=== PATIENT | male | born 1940 | race Caucasian/White ===

== ENCOUNTER 2018-03-26 11:41 | Inpatient (IN) | payer OTHER ==
[~2018-03-26] VITALS: Ht 167.6 cm; Wt 67.6 kg
[2018-03-26 11:45] VITALS: BP 101/31
--- NOTE | 2018-03-26 11:52 | NUR ---
77 YO MALE BIB EMS FROM HOME FOR SUDDEN ONSET OF GENERAL WEAKNESS & DIZINESS. AWAKE AND ALERT ON ARRIVAL.MED HX : DEAF USE SIGN LAGUAGE, HEART PROBLEM : STENT 2 WKS AGO AT [facility]. DENIES N/V/D; SKIN IS PINK/WARM/DRY; AAOX4 WITH EVEN AND STEADY GAIT; LUNGS CLEAR BL;PT DENIES ANY FEVER, CP, SOB, OR COUGH AT THIS TIME; PATIENT STATES PAIN OF 0/10 AT THIS TIME. PATIENT POSITIONED FOR COMFORT; HOB ELEVATED; BEDRAILS UP X2; BED DOWN. ER MD MADE AWARE OF PT STATUS.
[2018-03-26] MEDS ORDERED: NACL 0.9% 1,000 ML IV SCH ×2 (11:53→14:41)
[2018-03-26 12:17] LABS: BASOPHILS % (AUTO) 0.3 % (0.0-2.0); EOSINOPHILS % (AUTO) 0.2 % (0.0-4.0); LYMPHOCYTES # (AUTO) 0.7 K/uL (2.0-11.5); LYMPHOCYTES % (AUTO) 7.6 % (20.5-51.1); MEAN CORPUSCULAR HEMOGLOBIN 31 pg (27-31); MEAN CORPUSCULAR HGB CONC 34 g/dL (33-37); MEAN CORPUSCULAR VOLUME 91.6 fL (80-94); MONOCYTES # (AUTO) 0.7 K/uL (0.8-1.0); MONOCYTES % (AUTO) 7.1 % (1.7-9.3); NEUTROPHILS # (AUTO) 8.4 K/uL (1.8-7.7); NEUTROPHILS % (AUTO) 84.8 % (42.2-75.2); PLATELET COUNT (AUTO) 120 K/uL (140-450); RED CELL DISTRIBUTION WIDTH 14.9 % (11.6-13.7); WHITE BLOOD COUNT (AUTO) 9.9 K/uL (4.8-10.8)
[2018-03-26 12:32] LABS: HEMATOCRIT 16.5 % (36-52); HEMOGLOBIN 5.5 g/dL (12.0-18.0)
--- NOTE | 2018-03-26 12:41 | NUR ---
Patient being reevaluated by dr vargas at bedside.
[2018-03-26 12:46] LABS: ALBUMIN 2.1 g/dL (3.4-5.0); ANION GAP 10.8 (8-16); ASPARTATE AMINOTRANSFERASE 15 U/L (15-37); CARBON DIOXIDE 21.5 mmol/L (21-32); CHLORIDE 112 mmol/L (98-107); CREATININE 1.6 mg/dL (0.7-1.3); GLUCOSE 103 mg/dL (74-106); POTASSIUM 4.3 mmol/L (3.5-5.1); SODIUM SERUM 140 mmol/L (136-145); TOTAL BILIRUBIN 0.6 mg/dL (0.0-1.0); UREA NITROGEN, BLOOD 52 mg/dL (7-18)
--- NOTE | 2018-03-26 12:48 | NUR ---
family at bedside.
[2018-03-26 13:07] LABS: PROTHROMBIN TIME 14.4 secs (10.8-13.4)
--- NOTE | 2018-03-26 13:11 | NUR ---
PT CAN'T PROVIE URINE AT THIS TIME. NOTIFIED DR STODDARD. MADE AWARE.
--- NOTE | 2018-03-26 13:25 | NUR ---
SISTER IN LAW AT BEDSIDE.
--- NOTE | 2018-03-26 14:00 | NUR ---
BLOOD TRANSFUSION GIVEN STARTED AT 1400 PM. SEE DOCUMENT .
[2018-03-26] MEDS ORDERED: AMIO200T5 PO (14:36)
[2018-03-26] MEDS ORDERED: AMLO5TAB PO (14:36)
[2018-03-26] MEDS ORDERED: RIVA20TA PO (14:36)
[2018-03-26] MEDS ORDERED: ASPI-1129 PO (14:36)
[2018-03-26] MEDS ORDERED: LIP80 PO (14:36)
[2018-03-26] MEDS ORDERED: CARV3.12 PO (14:36)
[2018-03-26] MEDS ORDERED: LISI10TA11 PO (14:36)
[2018-03-26] MEDS ORDERED: TICA90TA PO (14:36)
--- NOTE | 2018-03-26 14:37 | NUR ---
Anibal recio in [facility] - 03/26/18 at 1712 by [place] ON-SERVICE EMPLOYEE ARRIVED AND WAS DIRECTED BY ARUNA ALVARADOTRADE SPECIALIST,
[2018-03-26] MEDS ORDERED: ACETAMINOPHEN 325 MG TAB PO PRN (14:45)
[2018-03-26] MEDS ORDERED: DOCUSATE SODIUM 100 MG GELCAP PO PRN (14:45)
[2018-03-26] MEDS ORDERED: LORazepam 2 MG/ML VIAL IM/IVP PRN (14:45)
[2018-03-26] MEDS ORDERED: HYDROcodone/APAP 5/325 MG 1 TAB TAB PO PRN (14:45)
[2018-03-26] MEDS ORDERED: ZOLPIDEM 5 MG TAB PO PRN (14:45)
[2018-03-26] MEDS ORDERED: ONDANSETRON 4 MG/2 ML VIAL IM/IVP PRN (14:45)
--- NOTE | 2018-03-26 14:45 | NUR ---
Patient appears to be resting comfortably in bed. BP109/34. Respirations even and unlabored.WILL CONTINUE TO MONITOR.NO BL TRANSFUSION REACTION AT THIS TIME. FAMILY AT BEDSIDE.
--- NOTE | 2018-03-26 15:28 | NUR ---
SPOKE TO COMMEND AT THIS TIME, AN CINNAMON GRINDER WILL BE AT THE FACILITY IN APPROXIMATELY 30 MINUTES AND BE AVAILABLE FOR 1-2 HOURS.
--- NOTE | 2018-03-26 15:49 | NUR ---
URINE SPECIMEN SENT TO LAB
--- NOTE | 2018-03-26 15:55 | NUR ---
FINISHED BL TRANSFUSION.
--- NOTE | 2018-03-26 16:37 | NUR ---
ON-DESOLDERER ARRIVED AND WAS DIRECTED BY ARUNA ALVARADOGIFT PACKER,
[2018-03-26] MEDS ORDERED: DEXT 5% / NACL 0.9% 500 ML IV SCH (16:45)
--- NOTE | 2018-03-26 16:57 | NUR ---
Patient will be admitted to care of DR GUERRERO. Admited to ICU. Will go to room 2. Belongings list completed. Report to BO HUGHES
[2018-03-26 17:07] LABS: APPEARANCE,URINE CLEAR (CLEAR); BILIRUBIN,URINE NEGATIVE (NEGATIVE); BLOOD, URINE NEGATIVE (NEGATIVE); COLOR,URINE YELLOW (YELLOW); LEUKOCYTE ESTERASE ,URINE NEGATIVE (NEGATIVE); NITRITE, URINE NEGATIVE (NEGATIVE); UGLUCOSE NEGATIVE (NEGATIVE)
[2018-03-26 17:09] LABS: CHOL/HDL RATIO 2.4 (1-4.5); MAGNESIUM 1.7 mg/dL (1.8-2.4); PHOSPHORUS 2.9 mg/dL (2.5-4.9); THYROID STIMULATING HORMONE 1.95 uIU/mL (0.34-3.74)
--- NOTE | 2018-03-26 17:10 | NUR ---
ADMITTED A 77 YO MALE FROM HOME TO ER WITH CO WEAKNESS ,DIZZINESS AND WABBLY WHEN WALKING FOR THE PAST 4 DAYS.PER PT HAD DARK STOOL .PT BECAUSE OF FEELING WEAK DID NOT EAT FOR 4 DAYS.LEFT AC 18 GAUGE SALINE LOCK.PT USES THE URINAL.PT ON 2 LITERS NASAL CANNULA SATURATING 99 PERCENT.PT IS MUTE AND ADMISSION DONE WITH SISTER IN LAW AND FAMILY CENTERED SPECIALIST YEN FELIX.NSR ON THE MONITOR.
[2018-03-26 17:11] VITALS: BP 129/70
[2018-03-26 18:00] VITALS: BP 124/82
[2018-03-26] MEDS ORDERED: PANTOPRAZOLE 40 MG INJ VIAL IVP SCH ×3 (18:05→19:00)
[2018-03-26] MEDS ORDERED: PANTOPRAZOLE 80 MG in NACL 0.9% 100 ML IV SCH (18:10)
[2018-03-26 18:32] LABS: HEMATOCRIT 22.1 % (36-52); HEMOGLOBIN 7.2 g/dL (12.0-18.0)
[2018-03-26] MEDS ORDERED: PANTOPRAZOLE 40 MG INJ VIAL ONE ×2 (18:36→19:32)
[2018-03-26] MEDS ORDERED: MAG SULF 2000 MG/WATER PREMIX 50 ML IV ONE (19:15)
--- NOTE | 2018-03-26 19:30 | NUR ---
RECEIVED REPORT FROM AM NURSE. INITIAL ASSESSMENT COMPLETED. PT IS AWAKE, ALERT, ORIENTED BUT DEAF. RUNNING INSTRUCTOR, YEN FELIX AND SISTER IN LAW AT BEDSIDE. ON ROOM AIR, O2 SAT 98%, NO SIGNS OF SOB. ATTACHED TO TIMBER HEWER, PULSE OXIMETER. IV ACCESS AT LEFT AC 18G, PATENT, INTACT. NOTED TO HAVE SIDHU DISCOLORATION AT LEFT ANTERIOR OF LOWER LEG. VOIDS FREELY. BED IN LOW POSITION, SAFETY MEASURE ENSURE. CALL LIGHT WITHIN REACH. WILL CONTINUE TO MONITOR.
[2018-03-26] MEDS: PANTOPRAZOLE 80 MG in NACL 0.9% 100 ML IV SCH (19:32)
[2018-03-26 20:00] VITALS: BP 127/60
[2018-03-26] MEDS ORDERED: FUROSEMIDE 20 MG TAB PO SCH (20:00)
--- NOTE | 2018-03-26 20:00 | NUR ---
NEW IV ACCESS AT RIGHT AC 20G INSERTED BY DOROTA CRONIN RN. PATENT, INTACT. WILL CONTINUE TO MONITOR.
[2018-03-26] MEDS: ACETAMINOPHEN 325 MG TAB PO SCH (21:07)
--- NOTE | 2018-03-26 21:40 | NUR ---
2ND UNIT OF BLOOD TRANSFUSION STARTED. CHARGE NURSE BUTCH AT BEDSIDE 2ND BIOMETRIC FINGERPRINTING TECHNICIAN. WILL CONTINUE TO MONITOR. PLEASE SEE BLOOD TRANSFUSION FORM.
[2018-03-26 22:00] VITALS: BP 123/47
--- NOTE | 2018-03-26 22:25 | NUR ---
PLEASE TAKEN TO CT SCAN, ACCOMPANIED BY RN AND NURSE COMMUNITY DEVELOPMENT COORDINATOR, MACHINE ROOM ENGINEER, YEN AND SISTER IN LAW. ATTACHED TO CLINICAL RESEARCH MANAGER. NO SIGNS OF DISTRESS. WILL CONTINUE TO MONITOR.
--- NOTE | 2018-03-26 22:40 | NUR ---
PT BACK TO ICU. NO COMPLAINT OF PAIN. WILL CONTINUE TO MONITOR. PATIENT SVCS MGR AND SISTER IN LAW AT BEDSIDE.
[2018-03-27] VITALS (22 sets, daily range): BP systolic 92–153; BP diastolic 36–90
[2018-03-27] MEDS: ACETAMINOPHEN 325 MG TAB PO SCH
--- NOTE | 2018-03-27 01:10 | NUR ---
BLOOD TRANSFUSION COMPLETED. PT ON STABLE CONDITION. NO SIGNS OF DISTRESS. 0030 DR. MOLINA NOTIFIED THAT BLOOD TRANSFUSION WILL BE COMPLETED BEFORE [address] MOLINA SAID OK NOT TO GIVE THE TYLENOL AND BENADRYL THAT WERE ORDERED TO BE GIVEN DURING TRANSFUSION (WHICH IS [id number]). TYLENOL AND BENADRYL PRIOR TRANSFUSION WERE GIVEN.
[2018-03-27] MEDS: HYDRAGUARD CREAM TP SCH ×2 (01:23→13:40)
--- NOTE | 2018-03-27 04:46 | NUR ---
DR. MOLINA AWARE OF CT HEAD AND PELVIS RESULTS. NO FURTHER ORDER AT THIS TIME. WILL CONTINUE TO MONITOR.
[2018-03-27] MEDS ORDERED: PANTOPRAZOLE 40 MG INJ VIAL ONE (05:11)
[2018-03-27] MEDS: PANTOPRAZOLE 80 MG in NACL 0.9% 100 ML IV SCH (05:13)
--- NOTE | 2018-03-27 05:20 | NUR ---
MORNING CARE, PT TOLERATED WELL.
--- NOTE | 2018-03-27 05:45 | NUR ---
DR. MOLINA IN THE UNIT. EXHAUST AND MUFFLER FITTER YEN FELIX AT BEDSIDE. PT RESTING COMFORTABLY.
[2018-03-27 05:53] LABS: BASOPHILS # (AUTO) 0.1 K/uL (0.00-0.22); BASOPHILS % (AUTO) 0.7 % (0.0-2.0); EOSINOPHILS # (AUTO) 0.3 K/uL (0-0.4); EOSINOPHILS % (AUTO) 2.5 % (0.0-4.0); HEMATOCRIT 26.7 % (36-52); HEMOGLOBIN 8.9 g/dL (12.0-18.0); LYMPHOCYTES % (AUTO) 9.6 % (20.5-51.1); MEAN CORPUSCULAR HEMOGLOBIN 30 pg (27-31); MEAN CORPUSCULAR HGB CONC 33 g/dL (33-37); MEAN CORPUSCULAR VOLUME 89.2 fL (80-94); MONOCYTES # (AUTO) 0.9 K/uL (0.8-1.0); MONOCYTES % (AUTO) 8.8 % (1.7-9.3); NEUTROPHILS # (AUTO) 8.4 K/uL (1.8-7.7); NEUTROPHILS % (AUTO) 78.4 % (42.2-75.2); RED CELL DISTRIBUTION WIDTH 16.1 % (11.6-13.7); WHITE BLOOD COUNT (AUTO) 10.7 K/uL (4.8-10.8)
[2018-03-27 06:05] LABS: PLATELET COUNT (AUTO) 62 K/uL (140-450)
[2018-03-27 06:16] LABS: ANION GAP 8.4 (8-16); CARBON DIOXIDE 24.4 mmol/L (21-32); CHLORIDE 114 mmol/L (98-107); CREATININE 1.4 mg/dL (0.7-1.3); GLUCOSE 134 mg/dL (74-106); POTASSIUM 3.8 mmol/L (3.5-5.1); SODIUM SERUM 143 mmol/L (136-145); UREA NITROGEN, BLOOD 35 mg/dL (7-18)
[2018-03-27 06:22] LABS: MAGNESIUM 2.2 mg/dL (1.8-2.4); PHOSPHORUS 1.8 mg/dL (2.5-4.9)
--- NOTE | 2018-03-27 06:55 | NUR ---
DR. MOLINA AWARE OF DECREASE PHOSPHORUS AND PLATELET RESULT. NO FURTHER ORDER AT THIS TIME. WILL CONTINUE TO MONITOR.
--- NOTE | 2018-03-27 07:09 | NUR ---
REPORT GIVEN TO ZAN RAYA FOR CONTINUITY OF CARE. PT ASLEEP AT THIS TIME.
--- NOTE | 2018-03-27 07:10 | NUR ---
RECEIVED PATIENT ON BED .NPO EXCEPT MEDS.YEN FELIX AND [id number] AVAILABLE FOR WOOL SUPPLIER.NO CO PAIN NOR ANY DISCOMFORT.LEFT AND RIGHT AC IV INTACT AND PATENT.PT USES THE URINAL.NSR AND FIRST DEGREE AV BLOCK ON THE MONITOR.
[2018-03-27] MEDS ORDERED: fentaNYL 0.05 MG/ML VIAL ONE (07:42)
[2018-03-27] MEDS ORDERED: MIDAZOLAM 2 MG/2 ML VIAL ONE ×2 (07:42)
[2018-03-27] MEDS ORDERED: POTASSIUM PHOSPHATE 15 MM in NACL 0.9% 250 ML IV SCH (08:30)
[2018-03-27] MEDS ORDERED: GLUCAGON 1 MG VIAL IVP ONE (08:45)
[2018-03-27] MEDS ORDERED: MIDAZOLAM 2 MG/2 ML VIAL IVP ONE (08:45)
[2018-03-27] MEDS ORDERED: fentaNYL 0.05 MG/ML VIAL IVP ONE (08:45)
[2018-03-27] MEDS: CARVEDILOL 3.125 MG TAB PO SCH ×2 (09:00→21:00)
[2018-03-27] MEDS ORDERED: AMIODARONE 200 MG TAB PO SCH (09:00)
[2018-03-27] MEDS ORDERED: GLUCAGON 1 MG VIAL ONE (09:18)
[2018-03-27] MEDS ORDERED: PANTOPRAZOLE 40 MG TABEC PO SCH (09:21)
[2018-03-27] MEDS: FERROUS SULFATE 325 MG TABEC PO SCH ×3 (09:45→17:20)
[2018-03-27] MEDS: LISINOPRIL 10 MG TAB PO SCH ×2 (09:50→10:05)
[2018-03-27] MEDS: ATORVASTATIN 80 MG TAB PO SCH (09:51)
[2018-03-27] MEDS: amLODIPine 5 MG TAB PO SCH ×2 (09:54→10:05)
[2018-03-27] MEDS ORDERED: PROBIOTIC SCREEN 1 EA MISC MC PRN (13:55)
--- NOTE | 2018-03-27 14:00 | NUR ---
RIA FELDMAN AT BEDSIDE NURSE TECH.
[2018-03-27] MEDS ORDERED: DEXT 5% IV SCH (18:10)
[2018-03-27] MEDS ORDERED: NACL 0.9% IV SCH (18:10)
--- NOTE | 2018-03-27 19:10 | NUR ---
RECEIVED REPORT FROM AM SHIFT FOR CONTINUITY OF CARE. PT AFEBRILE. DEAF BILATERALLY. RESPONDS TO TACTILE STIMULI. ABLE TO MAKE NEEDS KNOWN. LUNG SOUNDS CLEAR BILAT. ON ROOMS AIR. SR ON MONITOR. IV SITE L AC 18G PATENT INTACT. R AC PATENT INTANT. ON CLEAR LIQUID DIET. BOWEL SOUNDS HYPOACTIVE X 4 QUADRANTS. BLADDER NONDISTENDED. CONTINENT. ARMENTA DISCOLORATION ON LLE. SCD ON RLE. BED IN LOWEST POSITION. CALL LIGHT WITHIN REACH. SIDE RAILS UP X 4. NO SIGNS OF ACUTE DISTRESS. FAMILY AND BOND MANAGER AT BEDSIDE. WILL CONTINUE TO MONITOR
--- NOTE | 2018-03-27 19:13 | NUR ---
REPORT GIVEN TO KARTIK FOR CONTINUITY OF CARE
--- NOTE | 2018-03-27 19:30 | NUR ---
DR. MOLINA AT BEDSIDE TO EVALUATE PT. WILL FOLLOW UP ANY ADDITIONAL ORDERS.
[2018-03-27] MEDS: PANTOPRAZOLE 40 MG TABEC PO SCH (20:18)
--- NOTE | 2018-03-27 22:15 | NUR ---
PT ASLEEP AT THIS TIME. NO SIGNS OF ACUTE DISTRESS NOTED.
[2018-03-28] VITALS (9 sets, daily range): BP systolic 100–138; BP diastolic 37–71
[2018-03-28] MEDS: HYDRAGUARD CREAM TP SCH ×2 (01:24→13:00)
--- NOTE | 2018-03-28 02:43 | NUR ---
PT RESTING QUIETLY AT THIS TIME. NO SIGNS OF ACUTE DISTRESS NOTED. REPOSITIONED TO RIGHT SIDE.
--- NOTE | 2018-03-28 04:48 | NUR ---
LAB AT BEDSIDE AT THIS TIME
--- NOTE | 2018-03-28 05:08 | NUR ---
LAB AT BEDSIDE AT THIS TIME Addendum: 03/28/18 at 0558 by Gabino Burdick RN EDIT: PRECISION DYER AT BEDSIDE AT THIS TIME
--- NOTE | 2018-03-28 06:21 | NUR ---
AM CARE PROVIDED AT THIS TIME. NO SIGNS OF ACUTE DISTRESS NOTED.
[2018-03-28 07:07] LABS: ANION GAP 10.6 (8-16); CARBON DIOXIDE 22.4 mmol/L (21-32); CHLORIDE 116 mmol/L (98-107); CREATININE 1.2 mg/dL (0.7-1.3); GLUCOSE 80 mg/dL (74-106); SODIUM SERUM 145 mmol/L (136-145); UREA NITROGEN, BLOOD 20 mg/dL (7-18)
--- NOTE | 2018-03-28 07:20 | NUR ---
RECEIVED REPORT FROM MADELAINE ZULUAGA , PT.IS SLEEPING AT THE TIME THE ORACLE SOFTWARE ENGINEER AT BEDSIDE , HIS VITAL SIGN WITH IN NORMAL LIMIT.
--- NOTE | 2018-03-28 08:00 | NUR ---
CLEAR LIQUID BREAKFAST SERVED , ABLE TO SERVE HIMSELF..
[2018-03-28 08:24] LABS: BASOPHILS # (AUTO) 0.1 K/uL (0.00-0.22); BASOPHILS % (AUTO) 0.6 % (0.0-2.0); EOSINOPHILS # (AUTO) 0.4 K/uL (0-0.4); EOSINOPHILS % (AUTO) 3.8 % (0.0-4.0); HEMATOCRIT 25.2 % (36-52); HEMOGLOBIN 8.3 g/dL (12.0-18.0); LYMPHOCYTES # (AUTO) 0.8 K/uL (2.0-11.5); LYMPHOCYTES % (AUTO) 8.7 % (20.5-51.1); MEAN CORPUSCULAR HEMOGLOBIN 30 pg (27-31); MEAN CORPUSCULAR HGB CONC 33 g/dL (33-37); MEAN CORPUSCULAR VOLUME 89.6 fL (80-94); MONOCYTES # (AUTO) 0.8 K/uL (0.8-1.0); MONOCYTES % (AUTO) 8.3 % (1.7-9.3); NEUTROPHILS # (AUTO) 7.6 K/uL (1.8-7.7); NEUTROPHILS % (AUTO) 78.6 % (42.2-75.2); PLATELET COUNT (AUTO) 143 K/uL (140-450); RED BLOOD CELL COUNT(AUTO) 2.81 MIL/uL (4.20-6.10); RED CELL DISTRIBUTION WIDTH 17.5 % (11.6-13.7); WHITE BLOOD COUNT (AUTO) 9.6 K/uL (4.8-10.8)
[2018-03-28] MEDS: FERROUS SULFATE 325 MG TABEC PO SCH ×3 (08:26→16:12)
[2018-03-28] MEDS: ATORVASTATIN 80 MG TAB PO SCH (08:27)
[2018-03-28] MEDS: PANTOPRAZOLE 40 MG TABEC PO SCH ×2 (08:28→20:42)
--- NOTE | 2018-03-28 08:30 | NUR ---
SCHEDULE MORNING GIVEN EXCEPT ZESTRIL. COREG AND JUANA BP 108/46..
--- NOTE | 2018-03-28 08:30 | NUR ---
PATIENT IS RESTING REPORT GIVE TO JOSE LUIS ZULUAGA.
--- NOTE | 2018-03-28 08:35 | NUR ---
RECEIVED REPORT FROM CHARGE NURSE NAYELI TO CONTINUE PATIENT CARE. VSS. PATIENT A&Ox4. PATIENT COMMUNICATING VIA OWNER WHO IS AT BEDSIDE. WILL CONTINUE TO MONITOR.
--- NOTE | 2018-03-28 08:58 | NUR ---
PATIENT HAS BEEN SCREENED AND CATEGORIZED MODERATE NUTRITION RISK. PATIENT WILL BE SEEN WITHIN 3-5 DAYS OF ADMISSION. 03/29/18 03/31/[address]
[2018-03-28] MEDS: LISINOPRIL 10 MG TAB PO SCH (09:00)
[2018-03-28] MEDS: amLODIPine 5 MG TAB PO SCH (09:00)
[2018-03-28] MEDS: CARVEDILOL 3.125 MG TAB PO SCH ×2 (09:00→20:38)
--- NOTE | 2018-03-28 09:00 | NUR ---
THE PHOTOCOMPOSITION KEYBOARD OPERATOR LEFT SAID SHE WILL RETURN AT 1100 AM.
--- NOTE | 2018-03-28 10:00 | NUR ---
WOUND CARE NOTE: SEEN PT AT BEDSIDE AND COMMUNICATE WITH LIPS READING AND WRITING. PT. HAS NO ACTIVE WOUND, BLE SKIN DRYNESS, LLG NILAY ANKLE 10X15 CM LIGHT BROWN DISCOLORATION OBSERVED WITH SKIN INTACT, NO EDEMA, NO REDNESS, DORSAL PEDAL PULSES PRESENT. PER PT HAS NO ANY HX OF VASCULAR DISEASE HE CAN RECALL. NO OTHER SKIN REDNESS NOTICE. RECOMMENDATION TO APPLY HYDRAGUARD TO BLE BID AND LEAVE OPEN TO AIR. PT AGREEABLE WITH THE PLAN. AND PRIMARY RN NOTIFY. CONTINUE ALL PRESSURE INJURY INTERVENTIONS.
--- NOTE | 2018-03-28 10:48 | NUR ---
ADMISSION CHART REVIEW DONE FAXED INITIAL REVIEW TO [facility] [phone] PHONE SEBLE, .
--- NOTE | 2018-03-28 13:20 | NUR ---
TRANSFERRED PT TO ROOM 107A VIA WHEELCHAIR, ALL BELONGINGS GOES WITH PT, REPORT GIVEN TO ZAN JIMÉNEZ AT BEDSIDE, PT IS IN STABLE CONDITION AT THIS TIME.
--- NOTE | 2018-03-28 13:20 | NUR ---
PT RECEIVED FROM ICU. PT IS ALERT AND AWAKE. PT IS ACCOMPANIED BY A GRINDER HAND AND A FRIEND. PT HAS A R AC 20 GAUGE IV SITE, AND A L FA 22 GAUGE IV SITE. SKIN IS INTACT, EXCEPT DISCOLORATION OF LLE. PT IS ON ROOM AIR. VITAL SIGNS ARE STABLE: BP 136/42, HR 69, O2 100% ON ROOM AIR, TEMP 97.6, RESP 18. CALL LIGHT WITHIN REACH. WILL CONTINUE TO MONITOR.
[2018-03-28] MEDS: SODIUM PHOS / POTASSIUM PHOS 1 PKT PDR PO SCH (16:12)
--- NOTE | 2018-03-28 17:00 | NUR ---
PT IS AWAKE AND ALERT. NO S/S OF DISTRESS. SIGN EXTRUSION DIE TEMPLATE MAKER IS AT BEDSIDE. CALL LIGHT WITHIN REACH. WILL CONTINUE TO MONITOR.
--- NOTE | 2018-03-28 19:15 | NUR ---
PT REPORT GIVEN AT BEDSIDE TO PLISSE MACHINE OPERATOR HELPER NURSE. PT ENDORSED IN STABLE CONDITION.
--- NOTE | 2018-03-28 19:20 | NUR ---
RECEIVED REPORT FROM TINO ZULUAGA. PT IS AWAKE FUEL EFFICIENT AUTOMOBILE DESIGNER IS AT BEDSIDE. PT A&O X4. PT ON RA NO SIGNS OF SOB. PT WITH R AC 20G AND L FA 22 G. PT IS ON FALL PRECAUTIONS. ALL SAFETY MEASURES ARE IN PLACE. PT WITH SOME DISCOLORATION ON LLE AND A SCARAL RASH WILL CONTINUE TO MONITOR. CALL LIGHT WITHIN REACH.
--- NOTE | 2018-03-28 20:48 | NUR ---
DUE MEDICATIONS GIVEN. PT TOLERATED WILL GAVE MEDICATION WITH APPLE SAUCE. CALL LIGHT WITHIN REACH.
--- NOTE | 2018-03-28 23:22 | NUR ---
PT RESTING IN BED WATCHING TELEVISION. NO DISTRESS NOTED AT THIS TIME. ALL SAFETY MEASURES IN PLACE WILL CONTINUE TO MONITOR. CALL LIGHT IS WITHIN REACH.
--- NOTE | 2018-03-28 23:57 | NUR ---
PT VITAL SIGNS ARE WITHIN NORMAL LIMITS. HYDRAGUARD APPLIED TO BLE. NO DISTRESS NOTED. ALL SAFETY MEASURES IN PLACE. WILL CONTINUE TO MONITOR.
[2018-03-29] MEDS ORDERED: HYDRAGUARD CREAM TP SCH ×2 (01:00→09:00)
--- NOTE | 2018-03-29 01:57 | NUR ---
PT IS SLEEPING NO SIGNS OF DISTRESS NOTED. ALL SAFETY MEASURES IN PLACE. CALL LIGHT WITHIN REACH.
[2018-03-29] MEDS ORDERED: PNEUMOCOCCAL VACCINE 23 MCG/0.5 ML VIAL IMVAC PRN (02:40)
[2018-03-29] MEDS ORDERED: INFLUENZA VIRUS VACCINE QUAD 0.5 ML SYR IMVAC PRN (02:40)
--- NOTE | 2018-03-29 04:00 | NUR ---
PT SLEEPING BUT EASILY AROUSABLE. VITAL SIGNS ARE WITHIN NORMAL LIMITS. CALL LIGHT WITHIN REACH.
[2018-03-29 04:03] VITALS: BP 144/50
[2018-03-29] MEDS: SODIUM PHOS / POTASSIUM PHOS 1 PKT PDR PO SCH (06:38)
--- NOTE | 2018-03-29 06:38 | NUR ---
DUE MEDICATION GIVEN PT TOLERATED WELL. SANDING LINE OPERATOR AT BEDSIDE. PT IS RESTING COMFORTABLY IN BED. NO DISTRESS NOTED. CALL LIGHT WITHIN REACH.
--- NOTE | 2018-03-29 07:15 | NUR ---
ENDORSED PT TO TINO ZULUAGA. PT IN STABLE CONDITION. ALL SAFETY MEASURES ARE IN PLACE.
--- NOTE | 2018-03-29 07:20 | NUR ---
UT REPORT RECEIVED FROM SUPERVISOR SHIP MAINTENANCE SERVICES NURSE. PT IS ALERT AND AWAKE, ON ROOM AIR. SLITTER AND REWINDER MACHINE OPERATOR AT BEDSIDE. PT SEEN BY DR. JOHNSON AT THIS TIME. IV ON L FA INTACT AND PATENT. SKIN IS INTACT. VITAL SIGNS STABLE. CALL LIGHT WITHIN REACH. WILL CONTINUE TO MONITOR.
[2018-03-29 07:28] LABS: BASOPHILS % (AUTO) 0.4 % (0.0-2.0); EOSINOPHILS # (AUTO) 0.2 K/uL (0-0.4); HEMATOCRIT 41.7 % (36-52); HEMOGLOBIN 13.7 g/dL (12.0-18.0); LYMPHOCYTES # (AUTO) 2.7 K/uL (2.0-11.5); LYMPHOCYTES % (AUTO) 21.8 % (20.5-51.1); MEAN CORPUSCULAR HEMOGLOBIN 25 pg (27-31); MEAN CORPUSCULAR HGB CONC 33 g/dL (33-37); MEAN CORPUSCULAR VOLUME 77.1 fL (80-94); MONOCYTES # (AUTO) 0.9 K/uL (0.8-1.0); MONOCYTES % (AUTO) 7.2 % (1.7-9.3); NEUTROPHILS # (AUTO) 8.4 K/uL (1.8-7.7); NEUTROPHILS % (AUTO) 68.6 % (42.2-75.2); PLATELET COUNT (AUTO) 241 K/uL (140-450); RED BLOOD CELL COUNT(AUTO) 5.41 MIL/uL (4.20-6.10); RED CELL DISTRIBUTION WIDTH 13.6 % (11.6-13.7); WHITE BLOOD COUNT (AUTO) 12.2 K/uL (4.8-10.8)
[2018-03-29 07:43] LABS: ANION GAP 6.9 (8-16); CARBON DIOXIDE 31.1 mmol/L (21-32); CHLORIDE 108 mmol/L (98-107); CREATININE 0.7 mg/dL (0.7-1.3); GLUCOSE 83 mg/dL (74-106); SODIUM SERUM 142 mmol/L (136-145); UREA NITROGEN, BLOOD 9 mg/dL (7-18)
[2018-03-29 08:00] VITALS: BP 141/58
[2018-03-29 08:01] LABS: MAGNESIUM 1.9 mg/dL (1.8-2.4); PHOSPHORUS 3.9 mg/dL (2.5-4.9)
[2018-03-29] MEDS: ATORVASTATIN 80 MG TAB PO SCH (09:10)
[2018-03-29] MEDS: FERROUS SULFATE 325 MG TABEC PO SCH (09:10)
[2018-03-29] MEDS: LISINOPRIL 10 MG TAB PO SCH (09:10)
[2018-03-29] MEDS: amLODIPine 5 MG TAB PO SCH (09:11)
[2018-03-29] MEDS: CARVEDILOL 3.125 MG TAB PO SCH (09:11)
[2018-03-29] MEDS: PANTOPRAZOLE 40 MG TABEC PO SCH (09:12)
[2018-03-29] MEDS ORDERED: PANT40EC28 PO (09:59)
--- NOTE | 2018-03-29 11:10 | NUR ---
FAXED CONCURRENT REVIEW TO [facility] [phone] PHONE SEBLE [phone] CALLED [facility] AND SPOKE WITH SEBLE AND INFORMED HER THAT THE PATIENT IS GOING HOME AND NEEDS HOME HEALTH FOR PT. I FAXED THE ORDER AND PT EVAL.
--- NOTE | 2018-03-29 11:42 | NUR ---
PER MARCOS, LABEL REWINDER. THE PATIENT HAS A VIDEO PHONE. THE NUMBER IS [phone]. I CALLED SEBLE AT [facility] AND GAVE HER THE NUMBER OF THE VIDEO PHONE FOR THE HOME HEALTH.
--- NOTE | 2018-03-29 12:56 | NUR ---
Vice President Consulting Services Note: Late entry for 03/28: I met with patient and visual designer Evelyn Toussaint at bedside. Per patient, he lives alone at home and plans to return there upon discharge. He reported his caregiver Shameka assist him with the ADLs he can't complete independently and visits him frequently. He stated his sister in law Angela Sow is also supportive. He inquired if he could obtained a scooter, Addendum: 03/29/18 at 1304 by Brandy Cristina SS please disregard above note, it is not complete.
--- NOTE | 2018-03-29 13:10 | NUR ---
PT HAS DISCHARGED. PT LEFT IN STABLE CONDITION. PT RECEIVED FLU AND PNEUMO VACCINES UPON DISCHARGE. DISCHARGE DOCUMENTS AND PRESCRIPTION GIVEN, INFORMATION TRANSLATED TO HIM BY THE CERTIFIED COURT/MEDICAL INTERPRETER. SIGNATURES OBTAINED. SPECIAL AGENT [employer] STATED THAT PT UNDERSTANDS DISCHARGE ORDERS. PT IS ACCOMPANIED BY HIS FRIEND, WHO WILL DRIVE HIM HOME. IV SITE DC'D, WRIST BANDS REMOVED. PT LEFT WITH ALL HIS BELONGINGS.
--- NOTE | 2018-03-29 13:14 | NUR ---
SPOKE WITH SEBLE FROM [facility]. SHE SAID THE HOME HEALTH FOR P.T. WILL BE [facility], . NOT SURE OF START DATE, LOOKING FOR BALLING HEAD TENDER ALSO.
--- NOTE | 2018-03-29 13:28 | NUR ---
Manager Chemistry Note: Late entry for 03/28: I met with patient and computer aided design operator Evelyn Toussaint at bedside. Per patient, he lives alone at home and plans to return there upon discharge. He reported his caregiver Shameka assist him with the ADLs he can't complete independently and visits him frequently. He stated his sister in law Angela Sow is also supportive. He inquired if he could obtained an electric scooter, shower grab bars, and have a ramp built by the entrance of his home. I explained to him he needs to speak with his primary care physician regarding this since primary care physician is familiar with his medical history and can contact health insurance plan to determine if they can approve electric scooter, shower grab bars, and ramp. He verbalized understanding and stated he has told him primary care physician about his request and that he does not listen to him. I asked him if he has considered telling his health insurance he would like to be assign to another physician. He stated he has considered this and is planning to contact his health insurance post discharge. He is unsure if he has [employer] coverage. I provided him with education on two programs for seniors, [facility] and [employer] [facility] that offer home care, transportation, and DME assistance (based on criteria). I provided him with printed information about these two programs, he stated he was going to ask Brian read information to him. I provided him with my contact information. He stated he didnt have any questions or concerns at this time.
--- NOTE | 2018-03-29 13:32 | NUR ---
Land Department Head Note: I met with patient and pcb designer Evelyn Toussaint at bedside. Per patient, he is aware of MD's home health services order and is in agreement with home health services. He stated home health agency can contact him to schedule home visits, . He told him he has a phone with video sign language services. I offered to refer him to [facility] , [facility] is a program designed to follow individual/patient minimum of 30 days post-hospitalization with home visits and phone support as needed. A Licensed Nurse or Digital Commentator will customize a home visit plan of patient needs and community based resources are provided regardless of insurance coverage or ability to pay. Patient agreed. I faxed referral to [facility], fax number .
== END 2018-03-29 13:10 | disposition home health service (06) | DRG 377 ==
LOC: MED 11:41 → MIC 15:49 → EEVIPCON 15:49 → MTU 03-28 13:20
PROVIDERS: ADMIT General Practice; ATTEND General Practice
PROC: 30233N1 Transfusion of Nonautologous Red Blood Cells into Peripheral Vein, Percutaneous Approach (ICD-10-PCS; principal; 2018-03-26)
PROC: 0W3P8ZZ Control Bleeding in Gastrointestinal Tract, Via Natural or Artificial Opening Endoscopic (ICD-10-PCS; 2018-03-27)
PROC: 3E02340 Introduction of Influenza Vaccine into Muscle, Percutaneous Approach (ICD-10-PCS; 2018-03-29)
PROC: 3E0234Z Introduction of Serum, Toxoid and Vaccine into Muscle, Percutaneous Approach (ICD-10-PCS; 2018-03-29)
DX: K31.811 Angiodysplasia of stomach and duodenum with bleeding (principal); N17.0 Acute kidney failure with tubular necrosis; G93.41 Metabolic encephalopathy; E43 Unspecified severe protein-calorie malnutrition; D68.9 Coagulation defect, unspecified; J90 Pleural effusion, not elsewhere classified; J98.11 Atelectasis; I25.10 Atherosclerotic heart disease of native coronary artery without angina pectoris; I10 Essential (primary) hypertension; H91.90 Unspecified hearing loss, unspecified ear; I11.9 Hypertensive heart disease without heart failure; E83.39 Other disorders of phosphorus metabolism; K80.20 Calculus of gallbladder without cholecystitis without obstruction; N28.1 Cyst of kidney, acquired; D69.6 Thrombocytopenia, unspecified; I73.9 Peripheral vascular disease, unspecified; E83.42 Hypomagnesemia; I48.0 Paroxysmal atrial fibrillation; I87.2 Venous insufficiency (chronic) (peripheral); K44.9 Diaphragmatic hernia without obstruction or gangrene; D50.0 Iron deficiency anemia secondary to blood loss (chronic); R19.5 Other fecal abnormalities; Z85.828 Personal history of other malignant neoplasm of skin; Z86.74 Personal history of sudden cardiac arrest; Z95.5 Presence of coronary angioplasty implant and graft; Z87.891 Personal history of nicotine dependence; Z79.899 Other long term (current) drug therapy; Z68.24 Body mass index [BMI] 24.0-24.9, adult; Z23 Encounter for immunization
CPT/HCPCS: 36415; 70450; 71045; 80048; 80053; 81003; 82607; 82728; 82746; 83036; 83540; 83605; 83690; 83735; 83880; 84100; 84443; 84484; 85018; 85025; 85045; 85610; 85730; 86886; 86900; 86901; 86920; 87040; 87081; 87086; 90658; 90732; 93005; 93880; 93925; 93970; 96360; 97110; 97116; 97530; 99285; C9113; J1610; J2250; J3010; J3475; J7030; J7042; J7120; P9016; Q0092; Q0163